=== PATIENT | male | born 1955 | race Caucasian/White ===

== ENCOUNTER → 2017-02-05 | Outpatient (CLI) | payer MEDICARE ==
[~2017-02-05] MED LIST: ATEN50TA PO; HYDR-2551 PO; NOR5T PO; POTA-167 PO; RAMI2.5C33 OR
== END | disposition home or self-care (01) ==
LOC: Rad HDHVI 14:16
PROVIDERS: ATTEND Internal Medicine Cardiovascular Disease
DX: M77.32 Calcaneal spur, left foot (principal)
CPT/HCPCS: 73630

== ENCOUNTER → 2017-07-30 | Outpatient (CLI) | payer MEDICARE ==
[~2017-07-30] MED LIST changes: +HYDR-4663 PO; +KETOROLAC TROMETH 60MG/2ML VIAL IM ONE; -NOR5T PO; +TESTOSTERONE CYPIONATE 200 MG/ML 1ML VIAL IM ONE
[2017-07-30 08:05] VITALS: BP 159/85
[2017-07-30 08:45] VITALS: BP 140/83
[2017-07-30 12:37] LABS: Basophils # (auto) 0 uL; Basophils % (auto) 0.6 % (0.0-2.0); Eosinophils # (auto) 0.2 uL; Eosinophils % (auto) 4.2 % (0.0-7.0); Hematocrit 47.5 % (41.0-53.0); Hemoglobin 16.2 g/dL (13.5-17.5); Lymphocytes # (auto) 0.8 uL; Lymphocytes % (auto) 16.1 % (10.0-50.0); Mean Corpuscular Hemoglobin 31.3 pg (28.0-32.0); Mean Corpuscular Hgb Conc. 34.2 g/dL (32.0-36.0); Mean Corpuscular Volume 91.7 fL (80.0-100.0); Mean Platelet Volume 7.9 fL (6.9-10.8); Monocytes # (auto) 0.5 uL; Monocytes % (auto) 11.7 % (0.0-12.0); Neutrophils # (auto) 3.2 uL; Neutrophils % (auto) 67.4 % (37.0-80.0); Nucleated Red Blood Cells % 0.2 %; Platelet Count (auto) 217 10^3/uL (140-450); Red Cell Distribution Width 13.6 % (11.8-14.3); White Blood Cell 4.7 10^3/uL (4.4-10.8)
[2017-07-30 12:56] LABS: Albumin 3.6 g/dL (3.4-5.0); BUN/Creatinine Ratio 26.6; Bilirubin, Total 0.7 mg/dL (0.2-1.0); Calcium 8.7 mg/dL (8.5-10.1); Potassium 3.6 mmol/L (3.5-5.1); Total Protein 6.7 g/dL (6.4-8.2)
== END | disposition home or self-care (01) ==
LOC: CHF HDHVI 08:06
PROVIDERS: ATTEND Internal Medicine Cardiovascular Disease
DX: I25.10 Atherosclerotic heart disease of native coronary artery without angina pectoris (principal); I10 Essential (primary) hypertension; M19.011 Primary osteoarthritis, right shoulder; K74.1 Hepatic sclerosis; E11.9 Type 2 diabetes mellitus without complications; R97.20 Elevated prostate specific antigen [PSA]; R53.81 Other malaise; E03.9 Hypothyroidism, unspecified; D64.9 Anemia, unspecified; E55.9 Vitamin D deficiency, unspecified; N39.0 Urinary tract infection, site not specified; E29.1 Testicular hypofunction
CPT/HCPCS: 36415; 80053; 80061; 82306; 83036; 84153; 85025; 86141; 96372; G0463; J1071; J1885

== ENCOUNTER → 2017-08-01 | Outpatient (CLI) | payer MEDICARE ==
[~2017-08-01] MED LIST changes: -HYDR-4663 PO; +HYDR-4683 PO; -TESTOSTERONE CYPIONATE 200 MG/ML 1ML VIAL IM ONE
[2017-08-01 15:48] VITALS: BP 117/78
== END | disposition home or self-care (01) ==
LOC: CHF HDHVI 10:44
PROVIDERS: ATTEND Internal Medicine Cardiovascular Disease
DX: I50.9 Heart failure, unspecified (principal)
CPT/HCPCS: 96372; G0463; J1885

== ENCOUNTER 2017-11-20 12:47 | Inpatient (IN) | payer MEDICARE ==
[~2017-11-20] VITALS: Ht 185.4 cm; Wt 95.2 kg
[~2017-11-20 12:47] MED LIST changes: +ASPI81TA27 PO; -KETOROLAC TROMETH 60MG/2ML VIAL IM ONE; +LIDOCAINE 2%HCL (LOCAL ANESTH.) INJ 20ML MDV ONE; +MAGN400T5 PO; +NIAC1TAB5 PO
[2017-11-20] MEDS ORDERED: ANGIOMAX 250 MG VIAL IV ONE (13:52)
[2017-11-20] MEDS ORDERED: fentaNYL CITRATE 100 MCG/2 ML VL ONE (13:52)
[2017-11-20] MEDS ORDERED: MIDAZOLAM HCL 1MG/1ML-2 ML VIAL ONE (13:53)
[2017-11-20] MEDS ORDERED: LIDOCAINE 2%HCL (LOCAL ANESTH.) INJ 20ML MDV ONE (13:53)
[2017-11-20] MEDS ORDERED: SODIUM CHL 0.9% 50 ML ONE (13:53)
[2017-11-20] MEDS ORDERED: IOHEXOL 350 MG/ML 100ML IJ ONE (16:16)
[2017-11-20] MEDS ORDERED: CLOPIDOGREL 300 MG TAB ONE (16:23)
[2017-11-20] MEDS ORDERED: MORPHINE SULFATE 4 MG/ML SYR/VIAL IV PRN (17:00)
[2017-11-20] MEDS ORDERED: NITROGLYCERIN 0.4 MG SL TAB SL PRN (17:00)
[2017-11-20] MEDS ORDERED: HYDROcodone-ACET 5/325MG TAB PO PRN (17:00)
[2017-11-20] MEDS ORDERED: ACETAMINOPHEN 500 MG TAB PO PRN (17:00)
[2017-11-20 17:34] VITALS: BP 117/74
[2017-11-20 17:54] VITALS: BP 117/74
[2017-11-20 20:00] VITALS: BP 119/63
[2017-11-20] MEDS: SODIUM CHLOR 0.9% PF (SALINE LOCK) 10ML VIAL IV SCH (21:48)
[2017-11-20 22:00] VITALS: BP 119/63
[2017-11-21 05:00] VITALS: BP 135/98
[2017-11-21] MEDS: SODIUM CHLOR 0.9% PF (SALINE LOCK) 10ML VIAL IV SCH (05:37)
[2017-11-21 09:00] VITALS: BP 130/87
[2017-11-21] MEDS ORDERED: HCTZ 25 MG TAB PO SCH (10:00)
[2017-11-21] MEDS ORDERED: CLOPIDOGREL BISULFATE 75 MG TAB PO SCH (10:00)
[2017-11-21] MEDS ORDERED: ASPirin-EC 81 mg tab PO SCH (10:00)
[2017-11-21] MEDS ORDERED: Niacin SR 500mg TAB PO SCH (10:00)
[2017-11-21] MEDS ORDERED: RAMIPRIL 2.5 MG CAP PO SCH (10:00)
[2017-11-21] MEDS ORDERED: POTASSIUM CHL 10 Meq TABLET PO SCH (10:00)
[2017-11-21] MEDS ORDERED: MAGNESIUM OXIDE 400 MG TAB PO SCH (10:00)
[2017-11-21] MEDS ORDERED: ATENOLOL 25 MG PO SCH (10:00)
[2017-11-21 11:26] VITALS: BP 130/87
[2017-11-21 12:46] VITALS: BP 147/82
== END 2017-11-21 12:10 | disposition home or self-care (01) | DRG 246 ==
LOC: CATH 12:47 → TELE-EAST 12:48
PROVIDERS: ADMIT Internal Medicine Cardiovascular Disease; ATTEND Internal Medicine Cardiovascular Disease
PROC: 4A023N6 Measurement of Cardiac Sampling and Pressure, Right Heart, Percutaneous Approach (ICD-10-PCS; principal; 2017-11-21)
PROC: 027034Z Dilation of Coronary Artery, One Artery with Drug-eluting Intraluminal Device, Percutaneous Approach (ICD-10-PCS; 2017-11-21)
PROC: B2111ZZ Fluoroscopy of Multiple Coronary Arteries using Low Osmolar Contrast (ICD-10-PCS; 2017-11-21)
PROC: B2141ZZ Fluoroscopy of Right Heart using Low Osmolar Contrast (ICD-10-PCS; 2017-11-21)
DX: T82.855A Stenosis of coronary artery stent, initial encounter (principal); I50.21 Acute systolic (congestive) heart failure; E78.5 Hyperlipidemia, unspecified; I25.10 Atherosclerotic heart disease of native coronary artery without angina pectoris; Y81.3 Surgical instruments, materials and general- and plastic-surgery devices (including sutures) associated with adverse incidents; I11.0 Hypertensive heart disease with heart failure; Y83.1 Surgical operation with implant of artificial internal device as the cause of abnormal reaction of the patient, or of later complication, without mention of misadventure at the time of the procedure; Z98.61 Coronary angioplasty status
CPT/HCPCS: 36415; 80048; 85025; 85610; 85730; 92920; 93005; 93456; 93566; 99152; C1874; G0463; J2250

== ENCOUNTER → 2018-02-20 | Outpatient (CLI) | payer MEDICARE ==
[~2018-02-20] VITALS: Ht 182.9 cm; Wt 90.7 kg
[~2018-02-20] MED LIST changes: +ADENOSINE 76 MG in GIVE UN-DILUTED 0 ML IV ONE; +ADENOSINE 90 MG/30 ML INJ IV ONE; -LIDOCAINE 2%HCL (LOCAL ANESTH.) INJ 20ML MDV ONE
== END | disposition home or self-care (01) ==
LOC: Rad HDHVI 10:07
PROVIDERS: ATTEND Internal Medicine Cardiovascular Disease
DX: I20.0 Unstable angina (principal); E78.00 Pure hypercholesterolemia, unspecified; I11.0 Hypertensive heart disease with heart failure; I50.21 Acute systolic (congestive) heart failure; E78.5 Hyperlipidemia, unspecified; R07.89 Other chest pain
CPT/HCPCS: 78452; 93005; 96374; 96375; A9500; J0153

== ENCOUNTER → 2018-06-14 | Outpatient (CLI) | payer MEDICARE ==
[~2018-06-14] MED LIST changes: -ADENOSINE 76 MG in GIVE UN-DILUTED 0 ML IV ONE; -ADENOSINE 90 MG/30 ML INJ IV ONE
== END | disposition home or self-care (01) ==
LOC: LAB 12:28
PROVIDERS: ATTEND Internal Medicine Cardiovascular Disease
DX: E29.1 Testicular hypofunction (principal); I10 Essential (primary) hypertension; E03.9 Hypothyroidism, unspecified; E11.9 Type 2 diabetes mellitus without complications
CPT/HCPCS: 36415; 84403

== ENCOUNTER → 2019-02-06 | Outpatient (CLI) | payer MEDICARE ==
[~2019-02-06] VITALS: Ht 185.4 cm; Wt 88.5 kg
[~2019-02-06] MED LIST changes: +ADENOSINE 74 MG in GIVE UN-DILUTED 0 ML IV ONE; +ADENOSINE 90 MG/30 ML INJ IV ONE
[2019-02-06 12:06] LABS: Urine Blood Negative /uL (Negative); Urine Specific Gravity 1.018 (1.001-1.035)
[2019-02-06 12:14] LABS: Basophils # (auto) 0 uL; Basophils % (auto) 0.6 % (0.0-2.0); Eosinophils # (auto) 0.3 uL; Eosinophils % (auto) 3.9 % (0.0-7.0); Hemoglobin 17.4 g/dL (13.5-17.5); Lymphocytes # (auto) 0.9 uL; Lymphocytes % (auto) 10.4 % (10.0-50.0); Mean Corpuscular Hemoglobin 31.7 pg (28.0-32.0); Mean Corpuscular Hgb Conc. 34.2 g/dL (32.0-36.0); Mean Corpuscular Volume 92.6 fL (80.0-100.0); Monocytes # (auto) 0.8 uL; Monocytes % (auto) 9.4 % (0.0-12.0); Neutrophils # (auto) 6.6 uL; Neutrophils % (auto) 75.7 % (37.0-80.0); Platelet Count (auto) 222 10^3/uL (140-450); Red Blood Cells 5.51 10^6/uL (4.5-5.90); Red Cell Distribution Width 14.2 % (11.8-14.3); White Blood Cell 8.7 10^3/uL (4.4-10.8)
[2019-02-06 13:10] LABS: Potassium 3.8 mmol/L (3.5-5.1)
[2019-02-06 13:18] LABS: Albumin 3.7 g/dL (3.4-5.0); BUN/Creatinine Ratio 24.7; Bilirubin, Total 0.8 mg/dL (0.2-1.0); Calcium 9.2 mg/dL (8.5-10.1); Total Protein 6.8 g/dL (6.4-8.2)
[2019-02-06 13:20] LABS: Free T4 (Free Thyroxine) 1.01 ng/dL (0.89-1.76); Prostate Specific Antigen 1.26 ng/mL (0.0-4.0)
== END | disposition home or self-care (01) ==
LOC: Rad HDHVI 07:33
PROVIDERS: ATTEND Internal Medicine Cardiovascular Disease
DX: Z31.89 Encounter for other procreative management (principal); M75.81 Other shoulder lesions, right shoulder; C61 Malignant neoplasm of prostate; N39.0 Urinary tract infection, site not specified; E03.9 Hypothyroidism, unspecified; E55.9 Vitamin D deficiency, unspecified; D51.9 Vitamin B12 deficiency anemia, unspecified; E29.1 Testicular hypofunction; M77.9 Enthesopathy, unspecified; I25.10 Atherosclerotic heart disease of native coronary artery without angina pectoris; R00.2 Palpitations; Z79.899 Other long term (current) drug therapy; Z95.5 Presence of coronary angioplasty implant and graft
CPT/HCPCS: 36415; 78452; 80053; 80061; 81003; 82306; 82607; 83036; 84153; 84403; 84439; 84443; 85025; 93005; 93306; 96374; 96375; A9500; J0153

== ENCOUNTER → 2020-12-15 | Outpatient (CLI) | payer MEDICARE ==
[~2020-12-15] VITALS: Ht 182.9 cm; Wt 90.7 kg
[~2020-12-15] MED LIST changes: -ADENOSINE 74 MG in GIVE UN-DILUTED 0 ML IV ONE; +ADENOSINE 76 MG in GIVE UN-DILUTED 0 ML IV ONE; +ASPI-543 PO; -ASPI81TA27 PO; -HYDR-4683 PO; +HYDR-4833 PO; +MAGN400T40 PO; -MAGN400T5 PO; +NIAC1TAB32 PO; -NIAC1TAB5 PO
[2020-12-15 11:49] LABS: Basophils # (auto) 0 10 ^3/uL (0-0.2); Basophils % (auto) 0.6 % (0.0-2.0); Eosinophils # (auto) 0.2 10 ^3/uL (0-0.8); Eosinophils % (auto) 3.5 % (0.0-7.0); Hematocrit 47.6 % (41.0-53.0); Hemoglobin 16.3 g/dL (13.5-17.5); Lymphocytes # (auto) 0.8 10 ^3/uL (0.4-5.4); Lymphocytes % (auto) 16.1 % (10.0-50.0); Mean Corpuscular Hemoglobin 31.8 pg (28.0-32.0); Mean Corpuscular Hgb Conc. 34.3 g/dL (32.0-36.0); Mean Corpuscular Volume 92.7 fL (80.0-100.0); Monocytes # (auto) 0.6 10 ^3/uL (0-1.3); Monocytes % (auto) 12.3 % (0.0-12.0); Neutrophils # (auto) 3.3 10 ^3/uL (1.6-8.6); Neutrophils % (auto) 67.5 % (37.0-80.0); Nucleated Red Blood Cells % 0.2 %; Platelet Count (auto) 192 10^3/uL (140-450); Red Blood Cells 5.14 10^6/uL (4.5-5.90); Red Cell Distribution Width 13.9 % (11.8-14.3); White Blood Cell 4.9 10^3/uL (4.4-10.8)
[2020-12-15 11:50] LABS: Urine Blood Negative /uL (Negative)
[2020-12-15 12:02] LABS: Free T4 (Free Thyroxine) 0.87 ng/dL (0.89-1.76)
[2020-12-15 12:03] LABS: Prostate Specific Antigen 1.27 ng/mL (0.0-4.0)
[2020-12-15 13:45] LABS: Albumin 3.7 g/dL (3.4-5.0); Potassium 3.9 mmol/L (3.5-5.1)
[2020-12-15 13:49] LABS: BUN/Creatinine Ratio 20.2; Bilirubin, Total 0.9 mg/dL (0.2-1.0); Total Protein 7.2 g/dL (6.4-8.2)
== END | disposition home or self-care (01) ==
LOC: Rad HDHVI 09:33
PROVIDERS: ATTEND Internal Medicine Cardiovascular Disease
DX: C61 Malignant neoplasm of prostate (principal); D51.3 Other dietary vitamin B12 deficiency anemia; I10 Essential (primary) hypertension; E11.9 Type 2 diabetes mellitus without complications; E55.9 Vitamin D deficiency, unspecified; D64.9 Anemia, unspecified; R00.2 Palpitations; R53.1 Weakness; R30.0 Dysuria; R07.89 Other chest pain; I25.10 Atherosclerotic heart disease of native coronary artery without angina pectoris; E78.00 Pure hypercholesterolemia, unspecified; Z82.49 Family history of ischemic heart disease and other diseases of the circulatory system
CPT/HCPCS: 36415; 78452; 80053; 80061; 81003; 82306; 82607; 83036; 84153; 84403; 84439; 84443; 85025; 93005; 96374; 96375; A9500; J0153

== ENCOUNTER → 2020-12-30 | Outpatient (CLI) | payer MEDICARE ==
[~2020-12-30] MED LIST changes: -ADENOSINE 76 MG in GIVE UN-DILUTED 0 ML IV ONE; -ADENOSINE 90 MG/30 ML INJ IV ONE
== END | disposition home or self-care (01) ==
LOC: Rad HDHVI 10:01
PROVIDERS: ATTEND Internal Medicine Cardiovascular Disease
DX: I50.43 Acute on chronic combined systolic (congestive) and diastolic (congestive) heart failure (principal)
CPT/HCPCS: 93306

== ENCOUNTER → 2021-04-20 | Outpatient (CLI) | payer MEDICARE | END | disposition home or self-care (01) | LOC: CHF HDHVI 09:38 | PROVIDERS: ATTEND Internal Medicine Cardiovascular Disease | DX: E03.9 Hypothyroidism, unspecified (principal) | CPT/HCPCS: 36415; 84439; 84443 ==

== ENCOUNTER → 2022-03-03 | Outpatient (CLI) | payer MEDICARE | END | disposition home or self-care (01) | LOC: Rad HDHVI 10:01 | PROVIDERS: ATTEND Internal Medicine Cardiovascular Disease | DX: R06.02 Shortness of breath (principal); R00.2 Palpitations | CPT/HCPCS: 93306 ==

== ENCOUNTER → 2022-04-21 | Outpatient (CLI) | payer MEDICARE | END | disposition home or self-care (01) | LOC: Rad HDHVI 09:46 | PROVIDERS: ATTEND Internal Medicine Cardiovascular Disease | DX: Z01.818 Encounter for other preprocedural examination (principal); J38.02 Paralysis of vocal cords and larynx, bilateral; R06.02 Shortness of breath | CPT/HCPCS: 71046 ==

== ENCOUNTER → 2022-05-18 | Outpatient (CLI) | payer MEDICARE ==
[2022-05-18 12:50] LABS: Basophils # (auto) 0 10 ^3/uL (0-0.2); Basophils % (auto) 0.7 % (0.0-2.0); Eosinophils # (auto) 0.2 10 ^3/uL (0-0.8); Eosinophils % (auto) 5.1 % (0.0-7.0); Hematocrit 44.2 % (41.0-53.0); Hemoglobin 14.6 g/dL (13.5-17.5); Lymphocytes % (auto) 23.2 % (10.0-50.0); Mean Corpuscular Hemoglobin 30.4 pg (28.0-32.0); Mean Corpuscular Hgb Conc. 33.1 g/dL (32.0-36.0); Mean Corpuscular Volume 91.9 fL (80.0-100.0); Monocytes # (auto) 0.5 10 ^3/uL (0-1.3); Monocytes % (auto) 12.7 % (0.0-12.0); Neutrophils # (auto) 2.5 10 ^3/uL (1.6-8.6); Neutrophils % (auto) 58.3 % (37.0-80.0); Nucleated Red Blood Cells % 0.2 %; Red Blood Cells 4.81 10^6/uL (4.5-5.90); Red Cell Distribution Width 14.4 % (11.8-14.3); White Blood Cell 4.3 10^3/uL (4.4-10.8)
[2022-05-18 12:53] LABS: Albumin 3.4 g/dL (3.4-5.0); Calcium 9.2 mg/dL (8.5-10.1); Potassium 4.4 mmol/L (3.5-5.1)
[2022-05-18 12:56] LABS: BUN/Creatinine Ratio 17.8; Bilirubin, Total 0.8 mg/dL (0.2-1.0); Total Protein 6.6 g/dL (6.4-8.2)
[2022-05-18 13:03] LABS: INR 0.94 (0.9-1.15); Partial Thromboplastin Time 29.8 sec (24.6-33.4)
== END | disposition home or self-care (01) ==
LOC: LAB 09:49
PROVIDERS: ATTEND Internal Medicine Cardiovascular Disease
DX: Z01.812 Encounter for preprocedural laboratory examination (principal); R06.02 Shortness of breath; J38.00 Paralysis of vocal cords and larynx, unspecified
CPT/HCPCS: 36415; 80053; 85025; 85610; 85730

== ENCOUNTER → 2023-02-13 | Outpatient (CLI) | payer MEDICARE ==
[~2023-02-13] VITALS: Ht 185.4 cm; Wt 90.7 kg
[~2023-02-13] MED LIST changes: +ADENOSINE 76 MG in GIVE UN-DILUTED 0 ML IV ONE; +ADENOSINE 90 MG/30 ML INJ IV ONE
== END | disposition home or self-care (01) ==
LOC: Rad HDHVI 13:11
PROVIDERS: ATTEND Internal Medicine Cardiovascular Disease
DX: I11.9 Hypertensive heart disease without heart failure (principal); R06.02 Shortness of breath; I25.10 Atherosclerotic heart disease of native coronary artery without angina pectoris; R07.9 Chest pain, unspecified; E78.00 Pure hypercholesterolemia, unspecified; Z82.49 Family history of ischemic heart disease and other diseases of the circulatory system
CPT/HCPCS: 78452; 93005; 93306; 96374; 96375; A9500; J0153

== ENCOUNTER → 2024-04-04 | Outpatient (CLI) | payer MEDICARE ==
[~2024-04-04] VITALS: Ht 185.4 cm; Wt 95.3 kg
[~2024-04-04] MED LIST changes: -ADENOSINE 76 MG in GIVE UN-DILUTED 0 ML IV ONE; +ADENOSINE 80 MG in GIVE UN-DILUTED 0 ML IV ONE; -POTA-167 PO; +POTA-211 PO
== END | disposition home or self-care (01) ==
LOC: Rad HDHVI 09:22
PROVIDERS: ATTEND Internal Medicine Cardiovascular Disease
DX: I11.0 Hypertensive heart disease with heart failure (principal); I50.23 Acute on chronic systolic (congestive) heart failure; I25.5 Ischemic cardiomyopathy; E78.00 Pure hypercholesterolemia, unspecified; I25.10 Atherosclerotic heart disease of native coronary artery without angina pectoris; Z82.49 Family history of ischemic heart disease and other diseases of the circulatory system
CPT/HCPCS: 78452; 93005; 96374; 96375; A9500; J0153

== ENCOUNTER → 2024-04-21 | Outpatient (CLI) | payer MEDICARE ==
[~2024-04-21] MED LIST changes: -ADENOSINE 80 MG in GIVE UN-DILUTED 0 ML IV ONE; -ADENOSINE 90 MG/30 ML INJ IV ONE
== END | disposition home or self-care (01) ==
LOC: Rad HDHVI 11:09
PROVIDERS: ATTEND Internal Medicine Cardiovascular Disease
DX: R06.02 Shortness of breath (principal); M47.814 Spondylosis without myelopathy or radiculopathy, thoracic region; I70.0 Atherosclerosis of aorta
CPT/HCPCS: 71046

== ENCOUNTER 2025-05-29 09:33 | Outpatient (CLI) | payer MEDICARE ==
[2025-05-29 09:49] VITALS: BP 150/86; PULSE 68; RESP 16; O2SAT 96
[2025-05-29] MEDS ORDERED: IODIXANOL 320MG/ML 100ML BTL IV ONE (09:52)
[2025-05-29 10:10] VITALS: BP 144/80; PULSE 66; RESP 16; O2SAT 96
--- NOTE | 2025-05-29 14:01 | DVH ---
CT CT AB PEL WITH IV CON ONLY INDICATION: ABD PAIN EXAM DATE: 05/29/2025 09:48 AM COMPARISON: None RADIATION DOSE: CTDIvol: 8.74 mGy, DLP: 463.18 mGy*cm PROCEDURE: Helical CT images were obtained of the abdomen and pelvis with IV contrast Sagittal and co kate reconstructions are provided. ORAL CONTRAST: None. ADDITIONAL IMAGES / REFORMATS: None All CT s cans at this medical facility are performed using dose modulation techniques as appropriate to a perf ormed exam including the following: Automated exposure control was utilized; adjustment of the MA and /or KV according to patient size; and use of iterative reconstruction technique. FINDINGS: LUNG BASE: Normal. LIVER: Hepatic steatosis. GALLBLADDER AND BILIARY TREE: Absent gallbladder. No intra- or extrahepatic biliary ductal dilation. PANCREAS: Normal. SPLEEN: Normal. BOWEL: Moderate colonic diverticulosis. ADRENALS: Normal. KIDNEYS AND URETER: 1.6 cm enhancing lesion is suspected at the right upper pole of the kidney. 11.4 cm left kidney cyst. BLADDER: Normal. REPRODUCTIVE ORGANS: Normal. LYMPH NODES:No lymphadenopathy. PERITONEUM: No ascites or free air. No other fluid collection. VESSELS: Scattered atherosclerotic calcifications are noted. RETROPERITONEUM: Normal. ABDOMINAL WALL: Normal. BONES: Scattered osseous degenerative changes are noted. IMPRESSION: No acute intraabdominal abnormality. 1.6 cm enhancing lesion is suspected at the right upper pole of the kidney. Consider renal US for fur ther characterization. 11.4 cm left kidney cyst.
== END 2025-05-29 17:00 | disposition home or self-care (01) ==
LOC: Rad HDHVI 09:33
PROVIDERS: ATTEND Internal Medicine Cardiovascular Disease
DX: N28.1 Cyst of kidney, acquired (principal); K57.30 Diverticulosis of large intestine without perforation or abscess without bleeding; K76.0 Fatty (change of) liver, not elsewhere classified; R10.9 Unspecified abdominal pain; R06.02 Shortness of breath; I70.0 Atherosclerosis of aorta; M47.817 Spondylosis without myelopathy or radiculopathy, lumbosacral region; Z90.49 Acquired absence of other specified parts of digestive tract
CPT/HCPCS: 74177; G0463; Q9967

== ENCOUNTER 2025-06-16 09:02 | Outpatient (CLI) | payer MEDICARE ==
[~2025-06-16] VITALS: Ht 185.4 cm; Wt 95.3 kg
[2025-06-16 09:10] VITALS: BP 153/78; PULSE 58; RESP 16; O2SAT 96
[2025-06-16 09:30] VITALS: BP 140/76; PULSE 56; RESP 16; O2SAT 96
[2025-06-16] MEDS ORDERED: PANT40TA2 PO (10:54)
[2025-06-16] MEDS ORDERED: PANT1INJ3 IV (10:54)
[2025-06-16] MEDS ORDERED: HYDR25TA4 PO (10:54)
[2025-06-16] MEDS ORDERED: INCL284S SC (11:08)
[2025-06-16] MEDS ORDERED: LEVO25TA2 PO (11:08)
[2025-06-16] MEDS ORDERED: TADA20TA33 PO (11:08)
[2025-06-16] MEDS ORDERED: CLOP75TA70 PO (16:27)
[2025-06-16] MEDS ORDERED: HYDR-4798 PO (16:32)
== END 2025-06-16 17:00 | disposition home or self-care (01) ==
LOC: CHF HDHVI 09:02
PROVIDERS: ATTEND Internal Medicine Cardiovascular Disease
DX: Z01.818 Encounter for other preprocedural examination (principal); R06.02 Shortness of breath
CPT/HCPCS: 36415; 80048; 85025; 85610; 85730; 93005; G0463

== ENCOUNTER 2025-06-18 07:23 | Day surgery (SDC) | payer MEDICARE ==
[2025-06-16 12:07] LABS: Hematocrit 53.6 % (41.0-53.0); Hemoglobin 18.2 g/dL (13.5-17.5); Mean Corpuscular Hemoglobin 31.8 pg (28.0-32.0); Mean Corpuscular Volume 93.5 fL (80.0-100.0); Nucleated Red Blood Cells % 0.1 %
[2025-06-16 12:20] LABS: Chloride 104 mmol/L (98-107); Potassium 4.2 mmol/L (3.5-5.1); Sodium 143 mmol/L (136-145)
[2025-06-16 12:21] LABS: Anion Gap 8 (5-15); Carbon Dioxide 31 mmol/L (20-31)
[2025-06-16 12:22] LABS: Calcium 9.3 mg/dL (8.7-10.4)
[2025-06-16 12:27] LABS: BUN/Creatinine Ratio 10.5 (10.0-20.0); Blood Urea Nitrogen 11 mg/dL (9-23); Glucose 103 mg/dL (74-106)
[2025-06-16 12:30] LABS: INR 0.99 (0.9-1.15); Partial Thromboplastin Time 28.4 SEC (24.5-34.5); Prothrombin Time 10.5 sec (9.3-11.8)
[2025-06-18] VITALS (9 sets, daily range): BP systolic 124–139; BP diastolic 79–93; PULSE 78–88; RESP 12–18; O2SAT 93–96
[~2025-06-18 07:23] MED LIST changes: -ASPI-543 PO; +CLOP75TA70 PO; -HYDR-2551 PO; +HYDR-4798 PO; -HYDR-4833 PO; +HYDR25TA4 PO; +INCL284S SC; +LEVO25TA2 PO; -MAGN400T40 PO; -NIAC1TAB32 PO; +PANT40TA2 PO; -RAMI2.5C33 OR; +TADA20TA33 PO
[2025-06-18] MEDS ORDERED: IODIXANOL 320MG/ML 100ML BTL IV ONE ×2 (09:47→10:49)
[2025-06-18] MEDS ORDERED: fentaNYL CITRATE 100 MCG/2 ML VL ONE (10:01)
[2025-06-18] MEDS ORDERED: ANGIOMAX 250 MG VIAL IV ONE ×2 (10:01→10:38)
[2025-06-18] MEDS ORDERED: MIDAZOLAM HCL 2MG/2ML 2ml VIAL (1mg/ml) ONE (10:02)
[2025-06-18] MEDS ORDERED: LIDOCAINE 2%HCL (LOCAL ANESTH.) INJ 20ML MDV ONE (10:02)
[2025-06-18] MEDS ORDERED: SODIUM CHL 0.9% 50 ML ONE ×2 (10:02→10:38)
[2025-06-18] MEDS ORDERED: EPTIFIBATIDE INJ (2MG/ML) 10ML VIAL IV ONE ×2 (10:17→10:20)
[2025-06-18] MEDS ORDERED: ATROPINE SULF 1 MG/10ml SYR ONE (10:18)
[2025-06-18] MEDS ORDERED: CLOPIDOGREL BISULFATE 75 MG TAB ONE (10:53)
--- NOTE | 2025-06-18 11:40 | DVHOP ---
DATE OF SURGERY: 06/18/2025 PROCEDURES PERFORMED: * Selective left and right coronary angiography. * Right heart catheterization. * [place]-Lisa catheterization. * Intravascular ultrasound of the left anterior descending artery. * FFR of the left anterior descending artery proximally. * Thrombectomy with Shockwave of the in-stent restenosis/proximal LAD with a 3.0 x 13 mm Shockwave balloon. * Angioplasty with stent placement of the proximal left anterior descending artery covering the previous stent and also distally and proximally with a 3.5 x 34 mm [place] stent. * Intra-arterial/intracoronary injection of Integrilin x 2 and atropine was also given. Conscious sedation also given. DESCRIPTION OF PROCEDURE: The patient with history of coronary artery disease now to undergo the above-mentioned procedure. The patient was prepped and draped under sterile condition. Then, 1% Xylocaine was used to anesthetize the right groin. Using a Cook needle, right femoral artery was engaged. Via Seldinger technique, a 6-Tunisian sheath in the right femoral artery, similarly, a 6-Tunisian sheath was introduced the right femoral vein. Using a 6-Tunisian JL4 catheter and 6-Tunisian JL4 catheter, selective left and right coronary angiographies were performed. Using 6-Tunisian Pigtail catheter, a ventriculogram was done. Using a 6-Tunisian balloon tipped thermodilutional catheter, right-sided pressure tracing was obtained. There were no complications. The patient tolerated the procedure well. Following the diagnostic procedure, we proceeded to interventional procedure. Procedure performed include #1. Using a 6-Tunisian XB 3.5 guide catheter, the left main was cannulated. A single injection was given. Once the injection was given, the patient's entire left anterior descending artery as well as circumflex territory shut down. There was only SABIHA grade 1, maybe even 0 flow. Immediately, a total of 40 mg of Integrilin was given intra-arterially. With the introduction of intra-arterial Integrilin, the patient's ST elevation was noted. Immediately after the single shot, completely dissipated. The patient was put on anticoagulation with Angiomax protocol. Following that, repeat angiographies were done. There was no evidence of any critical lesion, but there was significant thrombus noted in the proximal segment of the left anterior descending artery proximal to the stent. Following the injection of the Integrilin, that clot also dissipated. The patient, as stated, had significant [address] elevation just with the diagnostic angiography, single shot. Then, FFR was done at the proximal segment. It was read out to be 0.9, but intravascular ultrasound showed greater than 50% narrowing of in-stent restenosis and about a 70% lesion in the proximal segment of the LAD stent. Therefore, we proceeded to angioplasty the stent section as well as the proximal and distal portion of it with thrombectomy catheter. A 3.0 x 13 mm Shockwave thrombectomy catheter was used. Following the dilatation, a 3.5 x 34 mm [place] stent was then deployed across the proximal LAD, even more proximal to the previous stent and covering the mid LAD distal to the previous stent. The entire stented portion was covered with a second stent, both distally as well as proximally. There were no complications. The patient tolerated the procedure well. Stent deployed was 3.5 x 34 mm. The proximal LAD measured 4. The distal LAD measured 3. Therefore, a 3.5 mm stent was then deployed because of the dimensions of the left anterior descending. There were no complications. The patient tolerated the procedure well. RESULTS: Left main calcified, no flow restrictive lesion. Left anterior descending artery had a high-grade thrombus in the proximal segment and about a 50%-70% narrowing in-stent restenosis, status post angioplasty, thrombectomy, and Shockwave treatment of the left anterior descending artery including imaging with intravascular ultrasound, now less than 10% residual stenosis. Moderate diffuse disease distal to the LAD. Circumflex artery once again was calcified, with moderate diffuse disease without any discrete lesion. Right coronary artery, mild intimal irregularity without any flow restrictive lesion. Overall, left ventricular ejection fraction was measured to be 50%, with an LVEDP of 10-12 mmHg, with no gradient across the aortic valve. Right heart catheterization, RA pressure of 5, RV pressure of 25/5, PA pressure of 22/4, and capillary wedge pressure of 4. At this time, left ventricular end diastolic pressure also was in the 10-12 mm range. Thus: * The patient does not have any significant heart failure. * There is no pulmonary hypertension. * The patient with hypercoagulable state, with significant thrombus noted and complete closure of the left anterior descending artery. The patient went into essentially ST elevation, but with anticoagulation, complete resolution was attained. The patient underwent stent placement of the left anterior descending artery with a 3.5 x 34 mm [place] stent following thrombectomy with a Shockwave device. The patient now has SABIHA grade 3 flow throughout the coronary anatomy, left main, circumflex, and the LAD as well as the RCA. There was complete resolution of the ST elevation that only lasted for about 2 minutes. Once Integrilin was given, intracoronary, complete resolution was obtained within 2 minutes. The patient did not have any further symptoms. No chest pain. The patient's heart rate remained above 90 throughout the procedure once atropine was given, because the patient became bradycardic with the ST elevation. At this time, the patient must always be under antiplatelet therapy because of the hypercoagulable state that the patient has. Stewart Delarosa MD SA/MAXIME TID: [id number] RECEIPT: [id number]
--- NOTE | 2025-06-18 11:53 | DVHHP ---
ADMIT DATE: 06/18/2025 HISTORY OF PRESENT ILLNESS: The patient who is 70 years old with a history of coronary artery disease, history of angioplasty, stent placement in the left anterior descending artery. The patient is having ongoing symptoms of shortness of breath even with minimal exertion. The patient's stress test showed significant anterior wall reversibility and because of the presentation, it is felt that the patient should undergo coronary angiography. The patient had stent placed over 10 years ago to the left anterior descending artery proximally. He denies any syncopal episodes. No melena, hematochezia, hematemesis, hemoptysis, or hematuria. Denies any current tobacco or alcohol use. No drug use. FAMILY HISTORY: Negative. SOCIAL HISTORY: Also negative. REVIEW OF SYSTEMS: He denies any history of CVA. No movement disorder. No history of syncope. No history of seizure disorder. Denies any irritable bowel syndrome symptoms. No history of inflammatory bowel disease. No history of rheumatologic disease other than osteoarthritis of the lower back as well as joints. He denies any recent trauma. No fever. No chills. No melena or hematochezia. Denies any history of swallowing difficulties. No recent infection such as pneumonia, urinary tract infection as well. PHYSICAL EXAMINATION: VITAL SIGNS: Blood pressure is 132/84, pulse of 70, O2 saturation 98% on room air. HEENT: Pupils are reactive. Funduscopic exam shows no AV nicking. No exudates. No papilledema. Sclerae anicteric. Extraocular muscles are intact. Oral mucosa moist. Posterior pharynx without any exudate. NECK: No JVD appreciated. Carotid pulses are 2+ and symmetrical. Normal upstroke and contour. No bruits appreciated. No cervical adenopathy. No supraclavicular adenopathy. PULMONARY: Clear to auscultation. Tympanic to percussion. CARDIOVASCULAR: Regular rate without S3, without S4. PMI is not displaced. ABDOMEN: Soft, nontender. Normal bowel sounds. Stool guaiac is negative. No epigastric tenderness. No suprapubic tenderness. NEUROLOGIC: The patient is intact as well. ASSESSMENT AND PLAN: Thus, the patient with a history of coronary artery disease now with increasing symptoms of shortness of breath. The patient is now to undergo left and right heart catheterization and possibility of intervention. Risks and benefits were explained to the patient. The patient agrees and will undergo the procedure. Stewart Delarosa MD SA/HARINI TID: [id number] RECEIPT: [id number]
--- NOTE | 2025-06-18 20:18 | DVHDS ---
DATE OF DISCHARGE: 06/18/2025 DISCHARGE DIAGNOSES: The patient is status post angioplasty with stent placement of the left anterior descending artery with intravascular ultrasound imaging, FFR imaging, as well as thrombectomy with a thrombectomy Shockwave catheter. The patient underwent stenting of the proximal LAD with a 3.5 x 34 mm stent. Clinically, the patient is stable, now being discharged home. He will be maintained on dual antiplatelet therapy. Stable at the time of discharge. DISPOSITION: Home. ACTIVITY: As instructed. DIET: Will be 2 g sodium diet. Stewart Delarosa MD SA/GRISELDA/ANETA TID: [id number] RECEIPT: [id number]
== END 2025-06-18 13:15 | disposition home or self-care (01) ==
LOC: CATH 07:23
PROVIDERS: ATTEND Internal Medicine Cardiovascular Disease
DX: R06.02 Shortness of breath (principal); I25.10 Atherosclerotic heart disease of native coronary artery without angina pectoris; T82.855A Stenosis of coronary artery stent, initial encounter; R94.39 Abnormal result of other cardiovascular function study; Z79.899 Other long term (current) drug therapy; Z87.01 Personal history of pneumonia (recurrent); Z95.5 Presence of coronary angioplasty implant and graft; Z87.891 Personal history of nicotine dependence; Z88.0 Allergy status to penicillin; Z88.5 Allergy status to narcotic agent; Y71.8 Miscellaneous cardiovascular devices associated with adverse incidents, not elsewhere classified
CPT/HCPCS: 0523T; 36415; 80048; 85025; 85610; 85730; 92972; 92973; 92978; 93460; C1760; C1761; C1769; C1874; C1887; C1894; C9600; J0583; J1327; J1644; J2250; J3010; J7030; Q9967; 99152; 99153

== ENCOUNTER 2025-08-11 11:00 | Outpatient (CLI) | payer MEDICARE ==
--- NOTE | 2025-08-12 14:10 | DVHSR ---
APPROVED REPORT EXAM: Two-dimensional and M-mode echocardiogram with Doppler and color Doppler. BRIEF HISTORY CAD DIMENSIONS LVDd4.9 (3.8-5.7cm)LA (2D)4.2 (1.9-4.0cm)Aortic Root3.6 (2.0-3.7cm) LVDs3.6 (2.5-4.0cm)LA (MM) (1.9-4.0cm)Aortic Cusp Exc1.8 (1.5-2.0cm) EF (%) 50.0 (55-70%)Rt. Atrium4.0 (1.9-4.0cm)Asc. Aorta cm IVSd1.0 (0.7-1.1cm)RV (D)4.1 (1.8-2.4cm) PWd1.1 (0.7-1.1cm) Mitral Valve MitralMitral Stenosis E wave0.54m/sMV Mean GR.mmHg A wave1.01m/sMV Peak GR.mmHg E/A ratio0.52D MVAcm2 DECEL [id number] 1/2 [place] Aortic Valve Aortic ValveAortic Stenosis V10.93m/Jennifer Mean GR.3mmHg V21.22m/Jennifer Peak GR.6mmHg LVOT Diameter2.1 (1.8-2.4cm)Doppler AVA2.64cm2 Pulmonic Valve V20.99m/s LEFT VENTRICLE The left ventricle is normal size. The left ventricle is normal in structure and function. The Ejection Fraction is within normal limits. RIGHT VENTRICLE The right ventricle is normal size. ATRIA The left atrium is enlarged. The right atrium is enlarged. The interatrial septum is intact with no evidence for an atrial septal defect. MITRAL VALVE The mitral valve is normal in structure. There is no mitral valve regurgitation noted. PULMONIC VALVE The pulmonic valve is not well visualized. TRICUSPID VALVE The tricuspid valve is grossly normal. AORTIC VALVE The aortic valve opens well. No aortic regurgitation is present. GREAT VESSELS The aortic root is normal size. PERICARDIAL EFFUSION There is no pericardial effusion. Other Information Conclusion LAE EF 50%
== END 2025-08-11 17:00 | disposition home or self-care (01) ==
LOC: Rad HDHVI 11:00
PROVIDERS: ATTEND Internal Medicine Cardiovascular Disease
DX: I50.43 Acute on chronic combined systolic (congestive) and diastolic (congestive) heart failure (principal); I25.5 Ischemic cardiomyopathy; I51.7 Cardiomegaly; I25.10 Atherosclerotic heart disease of native coronary artery without angina pectoris
CPT/HCPCS: 93306